=== PATIENT | male | born 1945 | race Caucasian/White ===

== ENCOUNTER 2016-09-18 12:46 | Emergency (ER) | payer OTHER, BC ==
[2016-09-18 12:52] VITALS: TEMP 97.9; BMI 30.2
--- NOTE | 2016-09-18 12:59 | PDOC ---
History of Present Illness - General History Source: Patient, Old Records Exam Limitations: No Limitations - History of Present Illness Initial Comments: 09/18/16 13:05 The patient is a 71-year-old man, accompanied by his , with a significant past medical history of hypertension, hypercholesterolemia and atrial fibrillation (Xarelto) who presents to the emergency department with complaints of right knee pain. He states that he stumbled across a rock that might have partially twisted his right knee, approximately 2 weeks ago. He admits that he has been experiencing intermittent non-radiating bearable right knee pains since his incident. He states that this morning, he woke up and noted that his right knee was swollen and his prior pain had worsened, as it became constant and started to radiate into his right calf and ankle. He denies any associated symptoms of numbness, tingling and weakness sensations to his extremities. He notes that his pain is unbearable exacerbated when flexing his right leg. He reports taking Advil this morning, which did not help. No fevers, chills, cough, shortness of breath, generalized weakness. No chest pain, lightheadedness, dizziness, headaches. No abdominal pain, nausea, vomiting, diarrhea. No urinary complaints. Allergies: No Known Drug Allergies Past Surgical History: Bilateral partial knee replacement. Social History: No tobacco, EtOH and recreational drug use. Orthopedic Surgeon: Dr. Samuel Quiroz [phone] <Mirta Gayle - Last Filed: 09/18/16 17:28> <Matilde Spann - Last Filed: 09/19/16 16:52> - General Chief Complaint: Edema Stated Complaint: INJURY Time Seen by Provider: 09/18/16 12:59 Past History <Mirta Gayle - Last Filed: 09/18/16 17:28> - Past Medical History Cardiac Disorders: Yes (a.fib) HTN: Yes Hypercholesterolemia: Yes - Surgical History Orthopedic Surgery: Yes (ARTHOSCOPYS IN BOTH KNEES) - Psycho/Social/Smoking Cessation Hx Anxiety: No Suicidal Ideation: No Smoking History: Never smoked Have you smoked in the past 12 months: No Information on smoking cessation initiated: No Hx Alcohol Use: No Drug/Substance Use Hx: No Substance Use Type: Alcohol Hx Substance Use Treatment: No <Matilde Spann - Last Filed: 09/19/16 16:52> - Past Medical History Allergies/Adverse Reactions: Allergies Allergy/AdvReac Type Severity Reaction Status Date / Time No Known Drug Allergies Allergy Verified 09/18/16 12:47 Home Medications: Ambulatory Orders Etodolac 400 mg PO BID #0 tablet 01/24/13 Lisinopril [Prinivil] 10 mg PO DAILY #0 tablet 01/24/13 Lovastatin [Altoprev] 40 mg PO HS #0 tab.sr.24h 01/24/13 Tamsulosin HCl [Flomax] 0.4 mg PO DAILY #10 capsule 02/07/14 Diclofenac Sodium [Voltaren] 4 gm TP TID PRN #100 gel..gram. 09/18/16 Metoprolol Succinate [Toprol Xl -] 12.5 mg PO DAILY 09/18/16 Review of Systems - Review of Systems Able to Perform ROS?: Yes Comments:: 09/18/16 13:17 GENERAL/CONSTITUTIONAL: No fever or chills. No weakness. HEAD, EYES, EARS, NOSE AND THROAT: No change in vision. No ear pain or discharge. No sore throat. CARDIOVASCULAR: No chest pain or shortness of breath. RESPIRATORY: No cough, wheezing, or hemoptysis. GASTROINTESTINAL: No nausea, vomiting, diarrhea or constipation. GENITOURINARY: No dysuria, frequency, or change in urination. MUSCULOSKELETAL: Yes: Right knee pain radiating down his calf and ankle. No neck or back pain. SKIN: No rash NEUROLOGIC: No headache, vertigo, loss of consciousness, or change in strength/ sensation. ENDOCRINE: No increased thirst. No abnormal weight change. HEMATOLOGIC/LYMPHATIC: No anemia, easy bleeding, or history of blood clots. ALLERGIC/IMMUNOLOGIC: No hives or skin allergy. <Mirta Gayle - Last Filed: 09/18/16 17:28> *Physical Exam - Vital Signs Last Vital Signs Temp Pulse Resp BP Pulse Ox 97.9 F 88 18 196/117 100 09/18/16 12:48 09/18/16 12:48 09/18/16 12:48 09/18/16 12:48 09/18/16 12:48 - Physical Exam Comments: 09/18/16 13:17 GENERAL: Awake, alert, and fully oriented, in no acute distress HEAD: No signs of trauma EYES: PERRLA, EOMI, sclera anicteric, conjunctiva clear ENT: Auricles normal inspection, hearing grossly normal, nares patent, oropharynx clear without exudates. Moist mucosa NECK: Normal ROM, supple, no lymphadenopathy, JVD, or masses LUNGS: Breath sounds equal, clear to auscultation bilaterally. No wheezes, and no crackles HEART: Regular rate and rhythm, normal S1 and S2, no murmurs, rubs or gallops ABDOMEN: Soft, nontender, normoactive bowel sounds. No guarding, no rebound. No masses EXTREMITIES: The right knee is howled at 80 degrees of flexion. Non- erythematous. + effusion. Patient is able to able actively extend the right leg. There is pain with passive range of motion. No clubbing or cyanosis. No cords. NEUROLOGICAL: Cranial nerves II through XII grossly intact. Normal speech. <Mirta Gayle - Last Filed: 09/18/16 17:28> - Vital Signs Last Vital Signs Temp Pulse Resp BP Pulse Ox 97.9 F 88 18 196/117 100 09/18/16 12:48 09/18/16 12:48 09/18/16 12:48 09/18/16 12:48 09/18/16 12:48 <Matilde Spann - Last Filed: 09/19/16 16:52> ED Treatment Course - LABORATORY CBC & Chemistry Diagram: 09/18/16 13:13 - RADIOLOGY Radiograph Interpretation: 09/18/16 15:19 EXAM: RAD/KNEE 3 POS-RIGHT Interpreted by Dr. Enzo Restrepo IMPRESSION: No history of trauma AP, lateral and oblique views reveal a medial compartment replacement similar to that seen on 01/23. There are degenerative changes and a suprapatellar joint effusion with swelling. There are some soft tissue calcifications. There is no sign of loosening, fracture or subluxation. If symptoms persist, further imaging may be of help. <Mirta Gayle - Last Filed: 09/18/16 17:28> - LABORATORY CBC & Chemistry Diagram: 09/18/16 13:13 <Matilde Spann - Last Filed: 09/19/16 16:52> Medical Decision Making - Medical Decision Making 09/18/16 15:[address] Quiroz. Case discussed with Dr. Quiroz's PA. <Mirta Gayle - Last Filed: 09/18/16 17:28> - Medical Decision Making 09/18/16 15:24 Pt presents to the ED complaining of a traumatic R knee pain and swelling. Swelling has been persistent for two weeks but became acutely worse today. Denies fevers or systemic symptoms. + effusion on exam and xray. pain is only slightly improved with percoset. Will treat with toradol and reassess. Likely discharge home with pain control and follow up with Dr. Quiroz's office tomorrow. Case discussed with Dr. Quiroz's PA who agrees with the plan. <Matilde Spann - Last Filed: 09/19/16 16:52> *DC/Admit/Observation/Transfer - Attestations Scribe Attestion: 09/18/16 13:17 Documentation prepared by Mirta Gayle, acting as medical office assistant instructor for Matilde Spann MD. <Mrita Gayle - Last Filed: 09/18/16 17:28> <Matilde Spann - Last Filed: 09/19/16 16:52> Diagnosis at time of Disposition: Knee pain - Discharge Dispostion Disposition: HOME Condition at time of disposition: Stable - Prescriptions Prescriptions: Diclofenac Sodium [Voltaren] 4 gm TP TID PRN #100 gel..gram. PRN Reason: Pain - Referrals Referrals: Epifanio Willis MD [Primary Care Provider] - - Patient Instructions Printed Discharge Instructions: DI for Knee Effusion Additional Instructions: Make sure that you follow up with Dr. Willis's office tomorrow morning. Ask for Courtney. Return immediately to the ED for severe pain, fever, redness of the knee or leg.
[2016-09-18] MEDS ORDERED: OXYCODONE/APAP 5/325MG COMBO TABLET PO ONE (13:05)
[2016-09-18] MEDS ORDERED: OXYCODONE/APAP 5/325MG COMBO TABLET ONE (13:25)
[2016-09-18 13:29] LABS: BASOPHIL 0.5 % (0-2.0); EOSINOPHIL 0.8 % (0-4.5); MCH 30.1 pg (25.7-33.7); MCHC 33.6 g/dl (32.0-35.9); MEAN CELL VOLUME 89.6 fl (80-96); MEAN PLT VOLUME 8.5 fl (7.5-11.1); NEUTROPHILS 72.6 % (42.8-82.8); PLATELET COUNT 161 K/MM3 (134-434); WHITE BLOOD COUNT 7.4 K/mm3 (4.0-10.0)
[2016-09-18 13:55] LABS: C-REACTIVE PROTEIN 0.3 MG/DL (0.00-0.3)
[2016-09-18 14:52] LABS: ERYTHROCYTE SEDIMENTATION RATE 15 mm/hr (0-20)
[2016-09-18] MEDS ORDERED: KETOROLAC TROMETHAMINE 60 MG/2 ML VIAL IM ONE (15:36)
[2016-09-18] MEDS ORDERED: KETOROLAC TROMETHAMINE 60 MG/2 ML VIAL ONE (15:46)
[2016-09-18 17:56] VITALS: BP 119/89; PULSE 82
[2016-09-19 08:23] LABS: URIC ACID 4.3 mg/dL (2.6-7.2)
== END 2016-09-18 17:59 | disposition home or self-care (01) ==
LOC: JER 12:46
PROC: 3E0233Z Introduction of Anti-inflammatory into Muscle, Percutaneous Approach (ICD-10-PCS; principal; 2016-09-18)
DX: M25.461 Effusion, right knee (principal); I10 Essential (primary) hypertension; E78.00 Pure hypercholesterolemia, unspecified; I48.91 Unspecified atrial fibrillation; Z79.01 Long term (current) use of anticoagulants
CPT/HCPCS: 36415; 73562-TC-RT; 84550; 85025; 85651; 86140; 96372; 99285-25

== ENCOUNTER 2016-12-21 09:43 | Day surgery (SDC) | payer OTHER, BC ==
[2016-12-20 10:50] VITALS: BMI 29.0
--- NOTE | 2016-12-21 09:33 | HP ---
Satellite H - Chief Complaint Chief Complaint: right knee pain/swelling - Past Medical History Allergies/Adverse Reactions: Allergies Allergy/AdvReac Type Severity Reaction Status Date / Time No Known Drug Allergies Allergy Verified 12/20/16 10:50 - Current Medications Current Medications: Home Medications Medication Instructions Recorded Etodolac 400 mg PO BID #0 tablet 01/24/13 Lovastatin [Altoprev] 40 mg PO HS #0 tab.sr.24h 01/24/13 Metoprolol Succinate [Toprol XL -] 12.5 mg PO DAILY 09/18/16 Ranitidine [Zantac -] 150 mg PO BID 12/20/16 Tamsulosin HCl [Flomax -] 0.4 mg PO HS 12/20/16 Hydrocodone/Acetaminophen [[place] 1 each PO Q6H PRN #20 tablet MDD 4 12/21/16 5-325 Tablet] Satellite Physical Exam - Physical Examination General Appearance: Well Nourished, Well Developed, Alert & Oriented x3 ENT: Clear Lung: Normal air movement Heart: Regular rate & rhythm Extremities: Other (right knee- well healed surgical scar, + swelling, + ttp, dec rom, nvi) Neurological: Intact, Alert, Oriented Satellite Impression/Plan - Impression/Plan Impression: right knee effusion s/p ukr Operative Procedure: right knee arthroscopy Date to be Performed: 12/21/16
[2016-12-21] MEDS ORDERED: PROPOFOL 20 ML ONE (11:22)
[2016-12-21] MEDS ORDERED: DEXAMETHASONE SOD PHOSPHATE 4 MG/1 ML VIAL ONE (11:22)
[2016-12-21] MEDS ORDERED: LIDOCAINE HCL/PF 2% SDV 5ML VIAL ONE (11:22)
[2016-12-21] MEDS ORDERED: MIDAZOLAM HCL 2 MG/2 ML SINGLE DOSE VIAL ONE (11:22)
[2016-12-21] MEDS ORDERED: ceFAZolin SODIUM 1 GM VIAL ONE (11:24)
[2016-12-21] MEDS ORDERED: oxyCODONE HCL 5 MG TABLET PO PRN (12:32)
[2016-12-21] MEDS ORDERED: ONDANSETRON 4 MG/2 ML VIAL IVPUSH PRN (12:32)
[2016-12-21] MEDS ORDERED: LACTATED RINGERS SOLUTION 1,000 ML IV SCH (12:45)
[2016-12-21] MEDS ORDERED: LIDOCAINE HCL 0.5%, 5 MG/ML (50mL SDVIAL) PNB ONE (13:34)
--- NOTE | 2016-12-21 13:37 | OP ---
Operative Note - Note: Operative Date: 12/21/16 Pre-Operative Diagnosis: right knee recurrent effusions, pain Operation: right knee arthroscopy, extensive synovectomy Findings: PVNS, extensive, as well as scar tissue, and femoral trochlear OA Post-Operative Diagnosis: Other Surgeon: Epifanio Willis Anesthesiologist/HEAD ORTHOPEDIC TEAM PHYSICIAN: Florentin Marino Anesthesia: General, Local Specimens Removed: shavings, PVNS, scar tissue, synovium Estimated Blood Loss (mls): 75 Drains, Volume Out (mls): 0 Blood Volume Replaced (mls): 0 Fluid Volume Replaced (mls): 500 Operative Report Dictated: Yes
[2016-12-21] MEDS ORDERED: MEPERIDINE HCL CARPU-JECT 25 MG/1 ML DISP.SYRIN ONE (13:44)
[2016-12-21] MEDS ORDERED: MEPERIDINE HCL CARPU-JECT 25 MG/1 ML DISP.SYRIN IVPUSH ONE (14:23)
[2016-12-21 15:11] VITALS: TEMP 98.1
[2016-12-21] MEDS ORDERED: ONDANSETRON 4 MG/2 ML VIAL ONE (16:05)
[2016-12-21] MEDS ORDERED: oxyCODONE HCL 5 MG TABLET ONE (16:34)
[2016-12-21 19:28] VITALS: BP 120/86; PULSE 82
--- NOTE | 2016-12-23 13:21 | PATH ---
Surgical Pathology Report Patient Name: ZINA PENNINGTON [facility]. Rec. #: [id number] /Age/Gender: 1945 (Age: 71) / M Account: [id number] Location: [facility] SURGICAL Taken: 12/21/2016 Received: 12/22/2016 Reported: 12/23/2016 Physicians: Epifanio Willis M.D. 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 FIBROCARTILAGE WITH MYXOHYALINE DEGENERATION AND FIBRINOHEMORRHAGIC MATERIAL. Comment: Clinical and arthroscopic correlations are suggested. Electronically Signed Taqueria Deleon M.D. Gross Description Received in formalin, labeled "right knee shavings" is a 4.5 x 3.5 x 3 cm aggregate of montelongo-yellow soft tissue fragments. A tour sales representative portion is submitted in one cassette. [facility]/12/22/2016 [facility]/12/22/2016
--- NOTE | 2017-01-03 13:32 | OP ---
DATE OF OPERATION: 12/21/2016 PREOPERATIVE DIAGNOSIS: Right knee recurrent effusions and pain. POSTOPERATIVE DIAGNOSIS: Right knee recurrent effusions and pain, extensive scar tissue, osteoarthritis, and pigmented villonodular synovitis. OPERATION: Right knee arthroscopy, extensive synovectomy. SURGEON: Epifanio Willis MD DOUGH SHEETER: None. ANESTHESIA: Florentin Marino CRNA ANESTHESIOLOGIST: General anesthesia with local injection, 20 mL 0.5% Marcaine. SPECIMENS: Arthroscopic shavings and PVNS scar tissue. BLOOD LOSS: 75 mL. DRAINS: None. COMPLICATIONS: None. BLOOD VOLUME REPLACEMENT: 500 mL PlasmaLyte. INDICATIONS: This patient is a 71-year-old male who has a history of recurrent right knee effusions. He is status post MAKOplasty. He understands the potential risks, complications, alternatives, and benefits to surgery versus nonsurgical treatment. DESCRIPTION OF PROCEDURE: The patient was brought to the operating room, peripheral IV placed, IV sedation given. Then 1 g of IV Ancef was given. LMA anesthesia was induced. He was placed into the C-clamp leg paez with ample padding throughout. The right lower extremity was prepped and draped in a sterile fashion, elevated, exsanguinated with an Esmarch bandage and tourniquet inflated to 275 mmHg. A superior medial outflow portal was established. A lateral portal was established. Under direct visualization, a medial portal was established using a spinal needle, and a diagnostic arthroscopy was performed. The patient was seen to have extensive PVNS all throughout the knee joint. There was also scar tissue and bands of scar tissue. I then used a curved shaver and an ArthroCare wand and did an extensive synovectomy removing all of the PVNS tissue and scar tissue that I could identify. This exposed that he has some femoral trochlear osteoarthritis. The THELMA prosthesis itself looks great. It is in position. I see no problems with whatsoever. The knee was put through a full range of motion. There were no abnormal points of impingement. I looked all around the joint to make sure there are no other pockets of PNVS or scar tissue that I missed. There were none. The area was copiously irrigated and washed out. The arthroscopy portal was closed with 3-0 nylon sutures, 20 mL 0.5% Marcaine introduced into the joint. The area was then washed and dried and covered with an acetabulum. The tourniquet was taken down after a total tourniquet time of 28 minutes. There was no complication during the case. The patient tolerated the procedure well and was brought to the ambulatory recovery room in stable condition. Andrzej [id number]
== END 2016-12-21 18:00 | disposition home or self-care (01) ==
LOC: JASU-SURG 09:43
PROVIDERS: ATTEND Orthopaedic Surgery
PROC: 0SBC4ZZ Excision of Right Knee Joint, Percutaneous Endoscopic Approach (ICD-10-PCS; principal; 2016-12-21 11:00)
DX: M25.461 Effusion, right knee (principal); M12.261 Villonodular synovitis (pigmented), right knee; M17.11 Unilateral primary osteoarthritis, right knee
CPT/HCPCS: 88304-TC; 94760

== ENCOUNTER 2020-07-07 06:07 | Inpatient (IN) | payer OTHER, BC ==
[~2020-07-07 06:07] MED LIST: VANCOMYCIN 1,000 MG VIAL (RESTRICTED TO ID ONLY) IVPB ONE
[2020-07-07] MEDS ORDERED: CELECOXIB 200 MG CAPSULE PO ONE (06:32)
[2020-07-07] MEDS ORDERED: TRANEXAMIC ACID 1000 MG/10 ML VIAL IVPUSH ONE (06:32)
[2020-07-07] MEDS ORDERED: CEFAZOLIN 2 GM in DEXTROSE 5%-WATER - 50 ML IVPB ONE (06:32)
[2020-07-07 06:48] VITALS: BMI 28.7
[2020-07-07] MEDS ORDERED: MIDAZOLAM HCL 2 MG/2 ML SINGLE DOSE VIAL ONE ×2 (07:01→08:55)
[2020-07-07] MEDS ORDERED: BUPIVACAINE LIPOSOME/PF (EXPAREL) 266 MG/20 ML VIAL ONE (07:01)
[2020-07-07] MEDS ORDERED: SODIUM CHLORIDE 0.9% P/F 10 ML VIAL IJ ONE (07:01)
[2020-07-07] MEDS ORDERED: VANCOMYCIN 1,000 MG VIAL (RESTRICTED TO ID ONLY) ONE ×2 (07:17→08:50)
[2020-07-07] MEDS ORDERED: ceFAZolin SODIUM 1 GM VIAL ONE ×3 (07:17→08:27)
[2020-07-07] MEDS ORDERED: MAG HYDROX/AL HYDROX/SIMETH 30 ML UNIT-DOSE CUP PO PRN (08:03)
[2020-07-07] MEDS ORDERED: MAGNESIUM HYDROX 2400MG/30ML ORAL SUSPENSION 30 ML CUP PO PRN (08:03)
[2020-07-07] MEDS ORDERED: LACTATED RINGERS SOLUTION 1,000 ML IV SCH (08:15)
[2020-07-07] MEDS ORDERED: TRANEXAMIC ACID 1000 MG/10 ML VIAL ONE ×2 (08:29→10:07)
[2020-07-07] MEDS ORDERED: PROPOFOL 20 ML ONE ×2 (09:08→10:06)
[2020-07-07] MEDS ORDERED: oxyCODONE HCL 5 MG TABLET PO PRN (10:54)
[2020-07-07] MEDS ORDERED: ACETAMINOPHEN INJECTION 100 ML IVPB ONE (11:14)
[2020-07-07] MEDS ORDERED: ACETAMINOPHEN 1000 MG/100 ML VIAL (NON FORMULARY) IVPB ONE (11:15)
[2020-07-07] MEDS: LACTATED RINGERS SOLUTION 1,000 ML IV SCH (12:00)
[2020-07-07] MEDS: oxyCODONE HCL 5 MG TABLET PO PRN ×2 (14:19→20:00)
[2020-07-07 14:54] LABS: HIV INTERPRETATION NEGATIVE (NEGATIVE)
[2020-07-07] MEDS: CEFAZOLIN 2 GM/D5W 2 GM/50 ML ML IVPB SCH ×2 (16:53→23:38)
[2020-07-07] MEDS: ONDANSETRON 4 MG/2 ML VIAL IVPUSH PRN (20:01)
[2020-07-07] MEDS: MONTELUKAST NA 10 MG TABLET PO SCH (21:49)
[2020-07-07] MEDS: TAMSULOSIN HCL 0.4 MG CAP PO SCH (21:49)
[2020-07-07] MEDS: SENNOSIDES/DOCUSATE COMBO (SENNA PLUS) TABLET (UD) PO SCH (21:49)
[2020-07-07] MEDS: ATORVASTATIN CA 10 MG TABLET (FP) PO SCH (21:49)
[2020-07-07] MEDS: oxyCODONE HCL 10 MG SUSTAINED ACTING TABLET PO SCH ×2 (21:50→23:38)
[2020-07-07] MEDS ORDERED: LOVASTATIN 40 MG PO SCH (22:00)
[2020-07-08 08:07] LABS: HEMATOCRIT 35.1 % (35.4-49); HEMOGLOBIN 11.8 GM/dl (11.7-16.9); MCH 30.1 pg (25.7-33.7); MCHC 33.6 g/dl (32.0-35.9); MEAN CELL VOLUME 89.6 fl (80-96); PLATELET COUNT 149 K/MM3 (134-434); RBC 3.92 M/mm3 (4.00-5.60); RDW 12.7 % (11.9-15.9); WHITE BLOOD COUNT 7.7 K/mm3 (4.0-10.8)
[2020-07-08] MEDS: ONDANSETRON 4 MG/2 ML VIAL IVPUSH PRN (08:25)
[2020-07-08] MEDS: metoPROLOL SUCCINATE 25 MG TAB.SR.24H (FP) PO SCH (10:23)
[2020-07-08] MEDS: SENNOSIDES/DOCUSATE COMBO (SENNA PLUS) TABLET (UD) PO SCH ×2 (10:24→21:24)
[2020-07-08] MEDS: APIXABAN 5 MG TABLET PO SCH ×2 (10:24→19:45)
[2020-07-08] MEDS: SERTRALINE HCL 50 MG TABLET (FP) PO SCH ×2 (10:24→10:26)
[2020-07-08] MEDS: PANTOPRAZOLE 40 MG TABLET PO SCH ×2 (10:24→10:26)
[2020-07-08] MEDS: MULTIVITAMINS (DAILY MVI) TABLET (FP) PO SCH ×2 (10:24→10:26)
[2020-07-08] MEDS: oxyCODONE HCL 10 MG SUSTAINED ACTING TABLET PO SCH (10:26)
[2020-07-08] MEDS: LACTATED RINGERS SOLUTION 1,000 ML IV SCH (12:00)
[2020-07-08] MEDS: MONTELUKAST NA 10 MG TABLET PO SCH (21:24)
[2020-07-08] MEDS: ATORVASTATIN CA 10 MG TABLET (FP) PO SCH (21:24)
[2020-07-08] MEDS: TAMSULOSIN HCL 0.4 MG CAP PO SCH (21:24)
[2020-07-09 07:45] LABS: HEMATOCRIT 33.8 % (35.4-49); HEMOGLOBIN 11.4 GM/dl (11.7-16.9); MCHC 33.5 g/dl (32.0-35.9); MEAN CELL VOLUME 89.3 fl (80-96); MEAN PLT VOLUME 8.7 fl (7.5-11.1); PLATELET COUNT 144 K/MM3 (134-434); RBC 3.79 M/mm3 (4.00-5.60); RDW 12.7 % (11.9-15.9); WHITE BLOOD COUNT 8.5 K/mm3 (4.0-10.8)
[2020-07-09 09:38] VITALS: BP 115/56; PULSE 86; TEMP 99.9
[2020-07-09] MEDS: MULTIVITAMINS (DAILY MVI) TABLET (FP) PO SCH (09:50)
[2020-07-09] MEDS: PANTOPRAZOLE 40 MG TABLET PO SCH (09:50)
[2020-07-09] MEDS: SERTRALINE HCL 50 MG TABLET (FP) PO SCH (09:51)
[2020-07-09] MEDS: APIXABAN 5 MG TABLET PO SCH (09:51)
[2020-07-09] MEDS: metoPROLOL SUCCINATE 25 MG TAB.SR.24H (FP) PO SCH (09:51)
[2020-07-09] MEDS: SENNOSIDES/DOCUSATE COMBO (SENNA PLUS) TABLET (UD) PO SCH (10:15)
== END 2020-07-09 11:26 | disposition home health service (06) | DRG 468 ==
LOC: FM/S 06:07
PROVIDERS: ADMIT Orthopaedic Surgery; ATTEND Orthopaedic Surgery
PROC: 0SRC0J9 Replacement of Right Knee Joint with Synthetic Substitute, Cemented, Open Approach (ICD-10-PCS; 2020-07-07)
PROC: 8E0Y0CZ Robotic Assisted Procedure of Lower Extremity, Open Approach (ICD-10-PCS; 2020-07-07)
PROC: 0SPC0LZ Removal of Medial Unicondylar Synthetic Substitute from Right Knee Joint, Open Approach (ICD-10-PCS; principal; 2020-07-07 08:33)
DX: T84.062A Wear of articular bearing surface of internal prosthetic right knee joint, initial encounter (principal); M17.11 Unilateral primary osteoarthritis, right knee; Y83.9 Surgical procedure, unspecified as the cause of abnormal reaction of the patient, or of later complication, without mention of misadventure at the time of the procedure; I10 Essential (primary) hypertension; I48.91 Unspecified atrial fibrillation
CPT/HCPCS: 36415; 73560-TC-RT-FY; 85027; 86803; 87389; 94760; 97010-GP; 97116-GP; 97162-GP; J0131

== ENCOUNTER 2020-10-16 04:15 | Day surgery (SDC) | payer OTHER, BC ==
[2020-10-15 09:39] VITALS: BMI 29.5
[2020-10-16] MEDS ORDERED: LIDOCAINE HCL/PF 1% SDV 5ML VIAL ONE ×2 (07:13→07:23)
[2020-10-16] MEDS ORDERED: BUPIVACAINE HCL/PF 0.75% 10 ML VIAL ONE ×2 (07:14→07:23)
[2020-10-16] MEDS ORDERED: IOHEXOL 180 MG/1 ML ML IJ ONE (10:09)
[2020-10-16] MEDS ORDERED: LIDOCAINE HCL 1% PRESERVATIVE FREE - 30ML VIAL IJ ONE (10:10)
[2020-10-16] MEDS ORDERED: BUPIVACAINE HCL/PF 0.75% 10 ML VIAL NR ONE (10:11)
[2020-10-16 10:29] VITALS: BP 134/93; PULSE 51; TEMP 97.9
== END 2020-10-16 10:50 | disposition home or self-care (01) ==
LOC: JASU-SURG 04:15
PROVIDERS: ATTEND Pain Medicine Pain Medicine
PROC: BR16YZZ Fluoroscopy of Lumbar Facet Joint(s) using Other Contrast (ICD-10-PCS; 2020-10-16)
PROC: 3E0T3BZ Introduction of Anesthetic Agent into Peripheral Nerves and Plexi, Percutaneous Approach (ICD-10-PCS; principal; 2020-10-16 09:00)
DX: M47.816 Spondylosis without myelopathy or radiculopathy, lumbar region (principal)

== ENCOUNTER 2020-12-18 04:13 | Day surgery (SDC) | payer OTHER, BC ==
[2020-12-16 14:16] VITALS: BMI 29.5
[2020-12-18] MEDS ORDERED: BUPIVACAINE HCL/PF 0.5% (5MG/ML) 10 ML VIAL ONE (07:06)
[2020-12-18] MEDS ORDERED: TRIAMCINOLONE ACET 40MG/1ML VIAL ONE (07:06)
[2020-12-18] MEDS ORDERED: LIDOCAINE HCL/PF 1% SDV 5ML VIAL ONE (07:06)
[2020-12-18] MEDS ORDERED: BUPIVACAINE HCL/PF 0.25% (2.5MG/ML) 10 ML VIAL ONE (07:06)
[2020-12-18] MEDS ORDERED: IOHEXOL 180 MG/1 ML ML IJ ONE (08:17)
[2020-12-18] MEDS ORDERED: LIDOCAINE 1% P/F 10 MG/ML VIAL PNB ONE ×2 (08:17)
[2020-12-18] MEDS ORDERED: BUPIVACAINE HCL/PF 0.25% (2.5MG/ML) 10 ML VIAL IJ ONE ×2 (08:17)
[2020-12-18] MEDS ORDERED: TRIAMCINOLONE ACET 40MG/1ML VIAL IM ONE (08:17)
[2020-12-18 10:40] VITALS: BP 140/70; PULSE 70; TEMP 98
== END 2020-12-18 08:55 | disposition home or self-care (01) ==
LOC: JASU-SURG 04:13
PROVIDERS: ATTEND Pain Medicine Pain Medicine
PROC: 3E0U3BZ Introduction of Anesthetic Agent into Joints, Percutaneous Approach (ICD-10-PCS; 2020-12-18)
PROC: 3E0U33Z Introduction of Anti-inflammatory into Joints, Percutaneous Approach (ICD-10-PCS; principal; 2020-12-18 08:00)
DX: M53.3 Sacrococcygeal disorders, not elsewhere classified (principal)
CPT/HCPCS: 76000-TC-FY

== ENCOUNTER 2020-12-19 13:39 | Emergency (ER) | payer OTHER, BC ==
[2020-12-19 13:50] VITALS: BP 130/84; PULSE 61; TEMP 98.1; BMI 29.5
[2020-12-19] MEDS ORDERED: LIDOCAINE 5% TOPICAL PATCH TP ONE (14:27)
[2020-12-19] MEDS ORDERED: IBUPROFEN 400 MG TABLET (FP) PO ONE ×2 (14:27→14:43)
[2020-12-19] MEDS ORDERED: LIDOCAINE 5% TOPICAL PATCH ONE (14:43)
[2020-12-19] MEDS ORDERED: LIDOCAINE PATCH REMOVAL MC ONE (22:00)
== END 2020-12-19 15:29 | disposition home or self-care (01) ==
LOC: JER 13:39
DX: M54.5 Low back pain (principal)
CPT/HCPCS: 99283-25